=== PATIENT | female | born 1985 | race Caucasian/White ===

== ENCOUNTER 2021-06-07 14:54 | Day surgery (SDC) | payer MEDICAID ==
[2021-05-30 16:58] LABS: BASOPHILS % (AUTO) 0.4 % (0-1); EOSINOPHILS # (AUTO) 0.3 X10'3 (0-0.9); EOSINOPHILS % (AUTO) 3.4 % (0-6); LYMPHOCYTES # (AUTO) 1.8 X10'3 (1.1-4.8); LYMPHOCYTES % (AUTO) 19.6 % (21-51); MEAN CORPUSCULAR HGB CONC 32.5 g/dL (33.0-36.5); MEAN CORPUSCULAR VOLUME 80.1 FL (78-98); MEAN PLATELET VOLUME 9.2 FL (7.4-10.4); MONOCYTES # (AUTO) 0.6 X10'3 (0-0.9); MONOCYTES % (AUTO) 6.3 % (2-12); NEUTROPHILS # (AUTO) 6.4 X10'3 (1.8-7.7); NEUTROPHILS % (AUTO) 70.3 % (42-75); PRE OP HEMATOCRIT 39.1 % (35.0-45.0); PRE OP HEMOGLOBIN 12.7 g/dL (12.0-16.0); PRE OP PLATELET COUNT 317 X10'3 (140-440); RED BLOOD COUNT 4.89 X10'6 (4.20-5.60); RED CELL DISTRIBUTION WIDTH 18.2 % (11.5-14.5)
[2021-05-30 17:05] LABS: CLARITY,URINE CLOUDY (Clear); COLOR,URINE YELLOW (Yellow); GLUCOSE, URINE NEGATIVE (Neg); KETONES,URINE TRACE mg/dl (Neg); LEUKOCYTE ESTERASE ,URINE NEGATIVE (Neg); NITRITES, URINE NEGATIVE (Neg); OCCULT BLOOD,URINE NEGATIVE (Neg); PROTEIN,URINE NEGATIVE (Neg); UROBILINOGEN,URINE 0.2 E.U/dL (0.2-1.0)
[2021-05-30 17:11] LABS: UA COLLECTION TYPE CLN CATCH MIDSTREAM
[2021-05-30 17:12] LABS: BACTERIA,URINE 2+ /HPF (Neg); MUCUS STRANDS MODERATE /LPF (Neg); SQUAMOUS EPITHELIAL CELL,UR MANY /LPF (FEW)
[2021-05-30 17:13] LABS: RBC,URINE 0-2 /HPF (0-2); WBC,URINE 0-4 /HPF (0-4)
[2021-05-30 17:14] LABS: ALBUMIN 3.5 G/DL (3.4-5.0); ALKALINE PHOSPHATASE 80 IU/L (46-116); BLOOD UREA NITROGEN 16 MG/DL (7-18); BUN/CREATININE RATIO 18.4 (6.6-38.0); CALCIUM 8.6 MG/DL (8.5-10.1); CHLORIDE 108 MMOL/L (99-107); CREATININE 0.87 MG/DL (0.40-0.90); PRE OP ALT 18 U/L (30-65); PRE OP ANION GAP 6 (8-16); PRE OP AST 7 U/L (10-37); PRE OP BILIRUB, TOTAL 0.3 MG/DL (0.0-1.0); PRE OP GLUCOSE 74 MG/DL (70-104); PRE OP POTASSIUM 3.4 MMOL/L (3.4-5.1); PRE OP SODIUM 143 MMOL/L (135-145); TOTAL CARBON DIOXIDE 28.8 MMOL/L (24-32); eGFR 74 ML/MIN
[2021-05-30 18:01] LABS: HCG SERUM QL NEGATIVE
[~2021-06-07] VITALS: Ht 172.7 cm; Wt 106.0 kg
[~2021-06-07 14:54] MED LIST: CHOL200026 PO; FAMO40TA58 PO; LEVE500T99 PO; LEVE750T66 PO; ONDA4TAB12 PO; ceFOXitin 2GM-NS 100mL ADDvant 100 ML IV ONE; famotidine 20mg tablet PO ONE; ringers solution, lacted 1,000 ML IV SCH
[2021-06-07 15:30] VITALS: BP 108/79
[2021-06-07] MEDS ORDERED: sevoflurane 250ml liquid IH ONE (17:45)
[2021-06-07] MEDS ORDERED: glycopyrrolate 0.2mg/ml inj ONE (17:45)
[2021-06-07] MEDS ORDERED: ePHEDrine 50MG/ML INJ. ONE (17:45)
[2021-06-07] MEDS ORDERED: BUPIVAcaine 0.5% inj/PF 30 ML ONE (17:49)
[2021-06-07] MEDS ORDERED: midazolam 1 mg/ML 2ml injection ONE (17:51)
[2021-06-07] MEDS ORDERED: fentaNYL/PF 50MCG/1 ML 2ML syringe ONE ×2 (17:51→18:11)
[2021-06-07] MEDS ORDERED: LIDOcaine 2% (20mg/ml) 5ml vial ONE (17:57)
[2021-06-07] MEDS ORDERED: propofol inj 20 ML IV ONE (17:57)
[2021-06-07] MEDS ORDERED: proCHLORperazine 10 MG/2 ml inj IV PRN (18:05)
[2021-06-07] MEDS ORDERED: ringers solution, lacted 1,000 ML IV SCH (18:05)
[2021-06-07] MEDS ORDERED: morphine 2 MG/ML inj. syringe IV PRN (18:05)
[2021-06-07] MEDS ORDERED: meperidine/PF 25mg/ml syringe IV PRN ×3 (18:05)
[2021-06-07] MEDS ORDERED: morphine 4 MG/ML inj SYRINge IV PRN (18:05)
[2021-06-07] MEDS ORDERED: ondansetron/PF 4mg/2ml inj IV PRN (18:05)
[2021-06-07] MEDS ORDERED: ondansetron/PF 4mg/2ml inj ONE (18:10)
[2021-06-07] MEDS ORDERED: dexamethasone sod phosphate 4mg/ml inj. ONE (18:10)
[2021-06-07 18:20] VITALS: BP 148/90
--- NOTE | 2021-06-07 18:20 | NUR ---
Received from OR via [facility] , accompanied by Anesthesiologist RANCHO and report given by Anesthesiolgist. VSS, TACHYCARDIC NSR DUE TO MEDICATION ADMIN. FOR BRADYCARDIA. O2 AT 6L FACEMASK. LR INFUSING IN R. HAND 20 G IV AT 100 ML/HR. CDI. PT REPORTS CRAMPING IN PELVIC ARE. ARABELLA PAD IN PLACE. Addendum: 06/07/21 at 1837 by Janice Allen RN Amended: Links added.
[2021-06-07] MEDS ORDERED: atropine 0.4 mg/ml 20ml vial ONE (18:21)
[2021-06-07 18:30] VITALS: BP 132/75
[2021-06-07 18:40] VITALS: BP 142/89
--- NOTE | 2021-06-07 18:47 | NUR ---
PT. REPORTS CONTINUED CRAMPING. 12/30 PAIN. 12.5 MG DEMEROL GIVEN. PT. RESTING IN [facility]. Addendum: 06/07/21 at 1848 by Janice Allen RN Amended: Links added.
[2021-06-07 18:50] VITALS: BP 135/84
[2021-06-07 19:00] VITALS: BP 128/85
--- NOTE | 2021-06-07 19:10 | NUR ---
PT. DC HOME VIA WC TO PRIVATE VEHICLE. ALL DC CRITERIA MET. VSS, PAIN 2/10 CRAMPING, RA, LEFT WITH PHONE AND CLOTHING. PT. ABLE TO DRESS SELF AND AMBULATE. EDUCATION GIVEN AND PT. STATES UNDERSTANDING. Addendum: 06/07/21 at 191 by Janice Allen RN Amended: Links added.
== END 2021-06-07 19:10 | disposition home or self-care (01) ==
LOC: PAS 14:54
PROVIDERS: ATTEND Obstetrics & Gynecology Obstetrics
DX: N93.9 Abnormal uterine and vaginal bleeding, unspecified (principal); F41.9 Anxiety disorder, unspecified; F32.9 Major depressive disorder, single episode, unspecified; J45.909 Unspecified asthma, uncomplicated; G43.909 Migraine, unspecified, not intractable, without status migrainosus; K21.9 Gastro-esophageal reflux disease without esophagitis; G40.909 Epilepsy, unspecified, not intractable, without status epilepticus; E66.9 Obesity, unspecified; Z68.35 Body mass index [BMI] 35.0-35.9, adult; Z20.822 Contact with and (suspected) exposure to COVID-19; Z79.899 Other long term (current) drug therapy; Z90.49 Acquired absence of other specified parts of digestive tract; Z90.722 Acquired absence of ovaries, bilateral; Z90.79 Acquired absence of other genital organ(s); F17.210 Nicotine dependence, cigarettes, uncomplicated; Z98.890 Other specified postprocedural states
CPT/HCPCS: 36415; 58558; 71046; 80053; 81001; 82948; 84703; 85025; 86885; 86900; 86901; 93005; J0461; J0694; J1100; J2001; J2175; J2250; J2405; J2704; J3010; J7030; U0003; U0005; Z7506; Z7512; A4355; A4618; A6258; A7000; J3490; J7120